=== PATIENT | female | born 1950 | race African-American/Black ===

== ENCOUNTER 2018-12-11 13:31 | Inpatient (IN) | payer OTHER ==
[2018-12-11 14:26] VITALS: BMI 31.6
--- NOTE | 2018-12-11 18:09 | HP ---
"CIWA Score Nausea/Vomitin-Mild Nausea/No Vomiting Muscle Tremors: 3 Anxiety: 4-Mod. Anxious/Guarded Agitation: 4-Moderately Restless Paroxysmal Sweats: 3 (Increased facial moisture) Orientation: 0-Oriented Tacttile Disturbances: 0-None Auditory Disturbances: 0-None Visual Disturbances: 0-None Headache: 2-Mild CIWA-Ar Total Score: 17 - Admission Criteria [facility] Guidelines: Admission for Medically Managed Detox: Requires at least one of the followin. CIWA greater than 12 2. Seizures within the past 24 hours 3. Delirium tremens within the past 24 hours 4. Hallucinations within the past 24 hours 5. Acute intervention needed for co occurring medical disorder 6. Acute intervention needed for co occurring psychiatric disorder 7. Severe withdrawal that cannot be handled at a lower level of care (continued vomiting, continued diarrhea, abnormal vital signs) requiring intravenous medication and/or fluids 8. Patient presents the following: CIWA greater than 12 Admission Criteria Met: Admission criteria met Admission ROS [facility] Chief Complaint: Here with alcohol withdrawal. Allergies/Adverse Reactions: Allergies Allergy/AdvReac Type Severity Reaction Status Date / Time tomato Allergy Severe Rash Verified 12/11/18 17:18 History of Present Illness: Here for alcohol detox. Alcohol use began at age 14. Cocaine use since age 26. Last use 2-3 weeks ago. Denies pill use. LEV 0.013. States last drink this am. Longest length of sobriety 7 months. Patient states had a heart attack in 2007 and was put on 'unknown' pills. States no medication for months. States HIV+ but non-compliant w/ medications or healthcare follow-up. States Hx: asthma. No exacerbation i years. States SOB w/ walking. Hx: 'bad' acid indigestion - especially when lays down at night which causes chest pain. Hx: HTN - not on any medications. States hx DM - controlled by diet. Current BGM =191. Hx arthritis w/ bilateral knee pain. Search Terms: Ruchi Noland, 1950 Search Date: 12/11/2018 06:02:17 PM The Drug Utilization Report below displays all of the controlled substance prescriptions, if any, that your patient has filled in the last twelve months. The information displayed on this report is compiled from pharmacy submissions to the Department, and accurately reflects the information as submitted by the pharmacies. This report was requested by: Ariane Galarza | Reference #: [id number] There are no results for the search terms that you entered. Exam Limitations: No Limitations - Ebola screening Have you traveled outside of the country in the last 21 days: No Have you had contact with anyone from an Ebola affected area: No Have you been sick,other than usual withdrawal symptoms: No Do you have a fever: No - Review of Systems Constitutional: Changes in sleep (Difficulty staying asleep.) EENT: reports: Ear Pain ((R) ear pain x weeks.), Dental Problems (Missing many teeth. Chews and swallows okay.) Respiratory: reports: SOB with Exertion (W/ walking) Cardiac: reports: Other (States hx heart attack. Denies chest pain at this time. ) GI: reports: Indigestion (Hx 'bad' acid indigestion - especially when lays down at night.) : reports: No Symptoms Reported Musculoskeletal: reports: Joint Pain (Bilateral knee pain - states has arthritis ) Integumentary: reports: No Symptoms Reported Neuro: reports: Headache, Tremors Endocrine: reports: No Symptoms Reported Hematology: reports: Blood Clots (years ago had clots in lungs which have resolved.) Psychiatric: reports: Judgement Intact, Orientated x3, Agitated, Anxious, Depressed (Sometimes depressed. Denies thoughts of harming self or others.) Patient History - Patient Medical History Hx Anemia: No Hx Asthma: No Hx Chronic Obstructive Pulmonary Disease (COPD): No Hx Cancer: No Hx Cardiac Disorders: No Hx Hypertension: No Hx Hypercholesterolemia: Yes Hx Pacemaker: No HX Cerebrovascular Accident: No Hx Seizures: No Hx Dementia: No Hx Diabetes: Yes (Pre-diabetic Diet Control ) Hx Gastrointestinal Disorders: Yes (Pt has GERD) Hx Liver Disease: Yes (Hep C ) Hx Genitourinary Disorders: No Hx Sexually Transmitted Disorders: No Hx Renal Disease (ESRD): No Hx Thyroid Disease: No Hx Human Immunodeficiency Virus (HIV): Yes (1993 - ) Hx Hepatitis C: Yes (no treatment ) Hx Depression: Yes Hx Suicide Attempt: No Hx Bipolar Disorder: No Hx Schizophrenia: No - Patient Surgical History Past Surgical History: Yes Hx Neurologic Surgery: No Hx Cataract Extraction: No Hx Cardiac Surgery: No Hx Lung Surgery: No Hx Breast Surgery: No Hx Breast Biopsy: No Hx Abdominal Surgery: No Hx Appendectomy: No Hx Cholecystectomy: No Hx Genitourinary Surgery: No Hx Section: No Hx Orthopedic Surgery: Yes (Sx on right ankle fx) Anesthesia Reaction: No - PPD History Previous Implant?: Yes Documented Results: Negative w/proof Implanted On Prior [facility] Admission?: Yes Date: 08/02/18 Results: 0 mm PPD to be Administered?: No - Smoking Cessation Smoking history: Never smoked Hx Chewing Tobacco Use: No Initiated information on smoking cessation: No - Substance & Tx. History Hx Alcohol Use: Yes Hx Substance Use: Yes Substance Use Type: Alcohol, Cocaine Hx Substance Use Treatment: Yes (detox, rehab) - Substances Abused Alcohol Route: Oral Frequency: Daily Amount used: 1 pint vodka Age of first use: 14 Date of Last Use: 12/11/18 Cocaine Route: Inhalation Frequency: 1-3 times last 30 days Amount used: $5 Age of first use: 26 Date of Last Use: 12/09/18 Family Disease History - Family Disease History Family Disease History: Diabetes: Father ( ), Mother ( ) Admission Physical Exam [facility] - Vital Signs Vital Signs: Vital Signs - 24 hr 12/11/18 14:25 Temperature 97.8 F Pulse Rate 104 H Respiratory 18 Rate Blood Pressure 139/88 - Physical General Appearance: Yes: Moderate Distress, Alcohol on Breath, Tremorous, Irritable, Sweating, Anxious HEENTM: Yes: EOMI (Jerking movement of eye on (L) lateral gaze.), Hearing grossly Normal, Normocephalic, Normal Voice, YVONNE, Pharynx Normal Respiratory: Yes: Chest Non-Tender, Lungs Clear, Normal Breath Sounds, No Respiratory Distress Neck: Yes: No masses,lesions,Nodules, Supple Breast: Yes: Breast Exam Deferred Cardiology: Yes: Regular Rhythm, S1, S2, Tachycardia Abdominal: Yes: Non Tender, Soft, Increased Bowel Sounds Genitourinary: Yes: Within Normal Limits Back: Yes: Normal Inspection Musculoskeletal: Yes: full range of Motion, Joint Stiffness (Mild crepitus both knees. No increased erythema, warmth or tenderness upon palpation.) Extremities: Yes: Normal Capillary Refill, Normal Range of Motion, Tremors Neurological: Yes: rope maker II-XII NML intact (Jerking movement of eye on (L) lateral gaze.), Fully Oriented, Alert, Motor Strength 5/5, Other (agitated, beligerant when asked questions) Integumentary: Yes: Normal Color, Dry, Warm Lymphatic: Yes: Within Normal Limits - Diagnostic (1) History of HIV infection Current Visit: Yes Status: Chronic (2) History of prediabetes Current Visit: Yes Status: Chronic (3) Cocaine use disorder, moderate, in early remission Current Visit: Yes Status: Chronic (4) Alcohol dependence with withdrawal Current Visit: Yes Status: Acute Qualifiers: Complication of substance-induced condition: uncomplicated Qualified Code(s ): F10.230 - Alcohol dependence with withdrawal, uncomplicated (5) Arthritis Current Visit: Yes Status: Chronic (6) GERD (gastroesophageal reflux disease) Current Visit: Yes Status: Chronic Qualifiers: Esophagitis presence: without esophagitis Qualified Code(s): K21.9 - Gastro -esophageal reflux disease without esophagitis (7) Hypertension Current Visit: Yes Status: Chronic Qualifiers: Hypertension type: unspecified Qualified Code(s): I10 - Essential (primary ) hypertension (8) History of abnormal electrocardiogram Current Visit: Yes Status: Chronic (9) Nystagmus Current Visit: Yes Status: Acute (10) Poor dentition Current Visit: Yes Status: Chronic Cleared for Admission [facility] - Detox or Rehab [facility] Level of Care: Medically Managed Detox Regimen/Protocol: Librium [facility] Breath Alcohol Content Breath Alcohol Content: 0.013 Urine Pregancy Test - Result Urine Test Results: Negative- NO Line Present Urine Drug Screen - Results Drug Screen Negative: No Urine Drug Screen Results: JORJE-Cocaine, BZO-Benzodiazepines"
[2018-12-11] MEDS ORDERED: IBUPROFEN 400 MG TABLET (FP) PO PRN (18:45)
[2018-12-11] MEDS ORDERED: chlordiazePOXIDE HCL 25 MG CAPSULE PO ONE (18:45)
[2018-12-11] MEDS ORDERED: MENTHOL/PHENOL 1 EACH UD MM PRN (18:45)
[2018-12-11] MEDS ORDERED: MAGNESIUM HYDROX 2400MG/30ML ORAL SUSPENSION 30 ML CUP PO PRN (18:45)
[2018-12-11] MEDS ORDERED: chlordiazePOXIDE HCL 25 MG CAPSULE PO PRN (18:45)
[2018-12-11] MEDS ORDERED: LOPERAMIDE HCL 2 MG CAPSULE PO PRN (18:45)
[2018-12-11] MEDS ORDERED: MAGNESIUM CITRATE 300 ML BOTTLE PO PRN (18:45)
[2018-12-11] MEDS ORDERED: P-EPHED 60MG/TRIPROLIDI 2.5MG TABLET PO PRN (18:45)
[2018-12-11] MEDS ORDERED: MAG HYDROX/AL HYDROX/SIMETH 30 ML UNIT-DOSE CUP PO PRN (18:45)
[2018-12-11] MEDS ORDERED: guaiFENesin 200 MG/10 ML 10 ML UNIT-DOSE CUPS PO PRN (18:49)
[2018-12-11] MEDS: THIAMINE HCL 100 MG TABLET (FP) PO SCH (21:16)
[2018-12-11] MEDS: PANTOPRAZOLE 20 MG TABLET (FP) PO ONE (21:16)
[2018-12-11] MEDS: chlordiazePOXIDE HCL 25 MG CAPSULE PO SCH (22:22)
[2018-12-11] MEDS: MELATONIN 5 MG TABLETS PO PRN (22:22)
[2018-12-12 01:59] LABS: URINE APPEARANCE CLEAR; URINE BILIRUBIN NEGATIVE (<2.0 mg/dL); URINE COLOR DKYELLOW; URINE GLUCOSE (UA) NEGATIVE (NEGATIVE); URINE KETONE NEGATIVE (NEGATIVE); URINE LEUK ESTERASE NEGATIVE (NEGATIVE); URINE NITRITE NEGATIVE (NEGATIVE); URINE PROTEIN 1+ (NEGATIVE)
[2018-12-12 02:30] LABS: EPI CELLS FEW /HPF (FEW); URINE HYALINE CAST 1 /lpf; URINE MUCUS RARE
[2018-12-12] MEDS: chlordiazePOXIDE HCL 25 MG CAPSULE PO SCH ×4 (06:12→22:25)
[2018-12-12] MEDS: ASPIRIN 81 MG CHEWABLE TABLETS PO SCH (10:57)
[2018-12-12] MEDS: PRENATAL VITAMINS W/ FOLIC ACID TABLET (FP) PO SCH (10:57)
[2018-12-12] MEDS: PANTOPRAZOLE 40 MG TABLET (FP) PO SCH (10:57)
--- NOTE | 2018-12-12 11:59 | EKG ---
Test Reason : Blood Pressure : / mmHG Vent. Rate : 071 BPM Atrial Rate : 071 BPM P-R Int : 228 ms QRS Dur : 094 ms QT Int : 430 ms P-R-T Axes : 073 205 163 degrees QTc Int : 467 ms SINUS RHYTHM WITH 1ST DEGREE A-V BLOCK POSSIBLE LEFT ATRIAL ENLARGEMENT RIGHT SUPERIOR AXIS DEVIATION ABNORMAL ECG WHEN COMPARED WITH ECG OF 31-JUL-2018 22:42, QRS AXIS SHIFTED LEFT NONSPECIFIC T WAVE ABNORMALITY NO LONGER EVIDENT IN ANTERIOR LEADS T WAVE INVERSION NOW EVIDENT IN LATERAL LEADS Confirmed by MILAGROS MONTANEZ, ORESTES ([id number]) on 12/12/2018 11:59:02 AM Referred By: Confirmed By:ORESTES LINARES MD
[2018-12-12 12:22] LABS: HEMATOCRIT 37.7 % (32.4-45.2); HEMOGLOBIN 13.2 GM/dL (10.7-15.3); MCHC 34.9 g/dl (32.0-36.0); MEAN CELL VOLUME 97.5 fl (80-96); MEAN PLT VOLUME 8.3 fl (7.5-11.1); PLATELET COUNT 177 K/MM3 (134-434); RBC 3.87 M/mm3 (3.60-5.2); RDW 15.8 % (11.6-15.6); WHITE BLOOD COUNT 2.8 K/mm3 (4.0-10.0)
[2018-12-12 12:38] LABS: ALBUMIN 3.2 g/dl (3.4-5.0); ALK PHOS 90 U/L (45-117); ANION GAP 9 MMOL/L (8-16); BILIRUBIN,TOTAL 0.4 mg/dL (0.2-1); BLOOD UREA NITROGEN 16 mg/dL (7-18); CHLORIDE 103 mmol/L (98-107); CO2 28 mmol/L (21-32); CREATININE 1.2 mg/dL (0.55-1.3); GLUCOSE,RANDOM 76 mg/dL (74-106); POTASSIUM 4.3 mmol/L (3.5-5.1); SGOT/AST 12 U/L (15-37); SGPT/ALT 11 U/L (13-61); SODIUM 139 mmol/L (136-145); TOT PROT 6.8 g/dl (6.4-8.2)
[2018-12-12] MEDS: ACETAMINOPHEN 325 MG TABLET (FP) PO PRN (15:34)
--- NOTE | 2018-12-12 16:45 | PN ---
[facility] CIWA - CIWA Score Nausea/Vomitin-No Nausea/No Vomiting Muscle Tremors: None Anxiety: 5 Agitation: 3 Paroxysmal Sweats: 2 Orientation: 0-Oriented Tacttile Disturbances: 3-Moderate Itch/Numb/Burn Auditory Disturbances: 0-None Visual Disturbances: 2-Mild Sensitivity Headache: 0-None Present CIWA-Ar Total Score: 15 S Progress Note (SOAP) Subjective: Anxious, Agitated, Sweating, Body Aches. Objective: PATIENT A & O X 3, OBSERVED AMBULATING ON UNIT. IN NO ACUTE DISTRESS. 12/12/18 16:45 Vital Signs Temperature 97.7 F 12/12/18 14:03 Pulse Rate 80 12/12/18 14:03 Respiratory Rate 16 12/12/18 14:03 Blood Pressure 107/52 L 12/12/18 14:03 O2 Sat by Pulse Oximetry (%) Laboratory Tests 12/11/18 12/12/18 12/12/18 22:30 09:29 09:29 WBC 2.8 L RBC 3.87 Hgb 13.2 Hct 37.7 MCV 97.5 H MCH 34.0 H MCHC 34.9 RDW 15.8 H Plt Count 177 MPV 8.3 Sodium 139 Potassium 4.3 Chloride 103 Carbon Dioxide 28 Anion Gap 9 BUN 16 Creatinine 1.2 Creat Clearance w eGFR 44.81 Random Glucose 76 Calcium 9.0 Total Bilirubin 0.4 AST 12 L ALT 11 L Alkaline Phosphatase 90 Total Protein 6.8 Albumin 3.2 L Urine Color Dkyellow Urine Appearance Clear Urine pH 6.0 Ur Specific [place] 1.025 Urine Protein 1+ H Urine Glucose (UA) Negative Urine Ketones Negative Urine Blood Negative Urine Nitrite Negative Urine Bilirubin Negative Urine Urobilinogen 2.0 H Ur Leukocyte Esterase Negative Urine WBC (Auto) 1 Urine RBC (Auto) <1 Ur Epithelial Cells Few Hyaline Casts 1 Urine Mucus Rare LABS NOTED. RPR RESULT PENDING. 12/12/18 16:47 Assessment: 12/12/18 16:46 WITHDRAWAL SYMPTOMS. Plan: CONTINUE DETOX. D/C IBUPROFEN AND MAGNESIUM-CONTAINING MEDS. FOR ABNORMAL ADMISSION RENAL LAB VALUES.
[2018-12-12] MEDS: MELATONIN 5 MG TABLETS PO PRN (22:25)
[2018-12-12] MEDS: THIAMINE HCL 100 MG TABLET (FP) PO SCH (22:25)
[2018-12-13] MEDS: chlordiazePOXIDE HCL 25 MG CAPSULE PO SCH ×3 (05:28→17:29)
[2018-12-13] MEDS: ACETAMINOPHEN 325 MG TABLET (FP) PO PRN (05:30)
[2018-12-13] MEDS ORDERED: IBUPROFEN 400 MG TABLET (FP) PO PRN (10:08)
[2018-12-13] MEDS: ASPIRIN 81 MG CHEWABLE TABLETS PO SCH (10:12)
[2018-12-13] MEDS: PRENATAL VITAMINS W/ FOLIC ACID TABLET (FP) PO SCH (10:12)
[2018-12-13] MEDS: PANTOPRAZOLE 40 MG TABLET (FP) PO SCH (10:13)
--- NOTE | 2018-12-13 13:19 | PN ---
[facility] CIWA - CIWA Score Nausea/Vomitin-No Nausea/No Vomiting Muscle Tremors: 3 Anxiety: 3 Agitation: 3 Paroxysmal Sweats: 2 Orientation: 0-Oriented Tacttile Disturbances: 0-None Auditory Disturbances: 0-None Visual Disturbances: 0-None Headache: 0-None Present CIWA-Ar Total Score: 11 S Progress Note (SOAP) Subjective: sweats shakes interrupted sleep body aches Objective: 12/13/18 13:18 Vital Signs Temperature 97.8 F 12/13/18 10:01 Pulse Rate 74 12/13/18 10:01 Respiratory Rate 18 12/13/18 10:01 Blood Pressure 99/55 L 12/13/18 10:01 O2 Sat by Pulse Oximetry (%) Laboratory Tests 12/11/18 12/12/18 12/12/18 22:30 09:29 09:29 WBC 2.8 L RBC 3.87 Hgb 13.2 Hct 37.7 MCV 97.5 H MCH 34.0 H MCHC 34.9 RDW 15.8 H Plt Count 177 MPV 8.3 Sodium 139 Potassium 4.3 Chloride 103 Carbon Dioxide 28 Anion Gap 9 BUN 16 Creatinine 1.2 Creat Clearance w eGFR 44.81 Random Glucose 76 Calcium 9.0 Total Bilirubin 0.4 AST 12 L ALT 11 L Alkaline Phosphatase 90 Total Protein 6.8 Albumin 3.2 L Urine Color Dkyellow Urine Appearance Clear Urine pH 6.0 Ur Specific [place] 1.025 Urine Protein 1+ H Urine Glucose (UA) Negative Urine Ketones Negative Urine Blood Negative Urine Nitrite Negative Urine Bilirubin Negative Urine Urobilinogen 2.0 H Ur Leukocyte Esterase Negative Urine WBC (Auto) 1 Urine RBC (Auto) <1 Ur Epithelial Cells Few Hyaline Casts 1 Urine Mucus Rare RPR Titer 12/12/18 09:29 WBC RBC Hgb Hct MCV MCH MCHC RDW Plt Count MPV Sodium Potassium Chloride Carbon Dioxide Anion Gap BUN Creatinine Creat Clearance w eGFR Random Glucose Calcium Total Bilirubin AST ALT Alkaline Phosphatase Total Protein Albumin Urine Color Urine Appearance Urine pH Ur Specific [place] Urine Protein Urine Glucose (UA) Urine Ketones Urine Blood Urine Nitrite Urine Bilirubin Urine Urobilinogen Ur Leukocyte Esterase Urine WBC (Auto) Urine RBC (Auto) Ur Epithelial Cells Hyaline Casts Urine Mucus RPR Titer Nonreactive aaox3 ambulating no acute distress Assessment: 12/13/18 13:19 withdrawal sx Plan: continue detox increase fluids
[2018-12-13] MEDS: MELATONIN 5 MG TABLETS PO PRN (22:18)
[2018-12-13] MEDS: chlordiazePOXIDE 5 MG CAPSULE PO SCH (22:18)
[2018-12-13] MEDS: THIAMINE HCL 100 MG TABLET (FP) PO SCH (22:18)
[2018-12-14] MEDS: chlordiazePOXIDE 5 MG CAPSULE PO SCH ×3 (06:15→17:55)
[2018-12-14] MEDS: PANTOPRAZOLE 40 MG TABLET (FP) PO SCH (10:31)
[2018-12-14] MEDS: PRENATAL VITAMINS W/ FOLIC ACID TABLET (FP) PO SCH (10:31)
[2018-12-14] MEDS: ASPIRIN 81 MG CHEWABLE TABLETS PO SCH (10:31)
[2018-12-14] MEDS: ACETAMINOPHEN 325 MG TABLET (FP) PO PRN (10:32)
--- NOTE | 2018-12-14 13:05 | PN ---
[facility] Progress Note (SOAP) Subjective: Irritability, restlessness and interrupted sleep Objective: 12/14/18 13:04 Vital Signs - 8 hr 12/14/18 12/14/18 08:27 09:49 Temperature 97.5 F L 97.7 F Pulse Rate 74 73 Respiratory 18 18 Rate Blood Pressure 97/55 L 108/59 L Laboratory Last Values WBC 2.8 K/mm3 (4.0-10.0) L 12/12/18 09:29 RBC 3.87 M/mm3 (3.60-5.2) 12/12/18 09:29 Hgb 13.2 GM/dL (10.7-15.3) 12/12/18 09:29 Hct 37.7 % (32.4-45.2) 12/12/18 09:29 MCV 97.5 fl (80-96) H 12/12/18 09:29 MCH 34.0 pg (25.7-33.7) H 12/12/18 09:29 MCHC 34.9 g/dl (32.0-36.0) 12/12/18 09:29 RDW 15.8 % (11.6-15.6) H 12/12/18 09:29 Plt Count 177 K/MM3 (134-434) 12/12/18 09:29 MPV 8.3 fl (7.5-11.1) 12/12/18 09:29 Sodium 139 mmol/L (136-145) 12/12/18 09:29 Potassium 4.3 mmol/L (3.5-5.1) 12/12/18 09:29 Chloride 103 mmol/L (98-107) 12/12/18 09:29 Carbon Dioxide 28 mmol/L (21-32) 12/12/18 09:29 Anion Gap 9 MMOL/L (8-16) 12/12/18 09:29 BUN 16 mg/dL (7-18) 12/12/18 09:29 Creatinine 1.2 mg/dL (0.55-1.3) 12/12/18 09:29 Creat Clearance w eGFR 44.81 (>60) 12/12/18 09:29 POC Glucometer 96 UNITS (80-120) 12/14/18 06:15 Random Glucose 76 mg/dL (74-106) 12/12/18 09:29 Calcium 9.0 mg/dL (8.5-10.1) 12/12/18 09:29 Total Bilirubin 0.4 mg/dL (0.2-1) 12/12/18 09:29 AST 12 U/L (15-37) L 12/12/18 09:29 ALT 11 U/L (13-61) L 12/12/18 09:29 Alkaline Phosphatase 90 U/L (45-117) 12/12/18 09:29 Total Protein 6.8 g/dl (6.4-8.2) 12/12/18 09:29 Albumin 3.2 g/dl (3.4-5.0) L 12/12/18 09:29 Urine Color Dkyellow 12/11/18 22:30 Urine Appearance Clear 12/11/18 22:30 Urine pH 6.0 (5.0-8.0) 12/11/18 22:30 Ur Specific [place] 1.025 (1.010-1.035) 12/11/18 22:30 Urine Protein 1+ (NEGATIVE) H 12/11/18 22:30 Urine Glucose (UA) Negative (NEGATIVE) 12/11/18 22:30 Urine Ketones Negative (NEGATIVE) 12/11/18 22:30 Urine Blood Negative (NEGATIVE) 12/11/18 22:30 Urine Nitrite Negative (NEGATIVE) 12/11/18 22:30 Urine Bilirubin Negative (<2.0 mg/dL) 12/11/18 22:30 Urine Urobilinogen 2.0 mg/dL (0.2-1.0) H 12/11/18 22:30 Ur Leukocyte Esterase Negative (NEGATIVE) 12/11/18 22:30 Urine WBC (Auto) 1 /hpf (3-5) 12/11/18 22:30 Urine RBC (Auto) <1 /hpf (0-3) 12/11/18 22:30 Ur Epithelial Cells Few /HPF (FEW) 12/11/18 22:30 Hyaline Casts 1 /lpf 12/11/18 22:30 Urine Mucus Rare 12/11/18 22:30 RPR Titer Nonreactive (NONREACTIVE) 12/12/18 09:29 Labs noted, no panic values Assessment: 12/14/18 13:05 Withdrawal sx Plan: Continue detox
[2018-12-14] MEDS: THIAMINE HCL 100 MG TABLET (FP) PO SCH (22:13)
[2018-12-14] MEDS: chlordiazePOXIDE HCL 10 MG CAPSULE PO SCH (22:13)
[2018-12-14] MEDS: MELATONIN 5 MG TABLETS PO PRN (22:13)
[2018-12-15] MEDS: chlordiazePOXIDE HCL 10 MG CAPSULE PO SCH ×2 (06:44→10:34)
[2018-12-15] MEDS: ACETAMINOPHEN 325 MG TABLET (FP) PO PRN (06:45)
[2018-12-15] MEDS: ASPIRIN 81 MG CHEWABLE TABLETS PO SCH (10:34)
[2018-12-15] MEDS: PRENATAL VITAMINS W/ FOLIC ACID TABLET (FP) PO SCH (10:34)
[2018-12-15] MEDS: PANTOPRAZOLE 40 MG TABLET (FP) PO SCH (10:34)
--- NOTE | 2018-12-15 11:03 | DS ---
[facility] Detox Discharge Summary Admission Date: 12/11/18 Discharge Date: 12/15/18 - History Present History: Alcohol Dependence Additional Comments: 68 years old female admitted on 12/11/18 for alcohol withdrawal stabilization completed alcohol detox regimen tolerated well aftercare [facility] - Physical Exam Results Vital Signs: Vital Signs Temperature 97.3 F L 12/15/18 08:02 Pulse Rate 72 12/15/18 08:02 Respiratory Rate 18 12/15/18 08:02 Blood Pressure 93/65 12/15/18 08:02 O2 Sat by Pulse Oximetry (%) Pertinent Admission Physical Exam Findings: alcohol withdrawal sx Laboratory Last Values WBC 2.8 K/mm3 (4.0-10.0) L 12/12/18 09:29 RBC 3.87 M/mm3 (3.60-5.2) 12/12/18 09:29 Hgb 13.2 GM/dL (10.7-15.3) 12/12/18 09:29 Hct 37.7 % (32.4-45.2) 12/12/18 09:29 MCV 97.5 fl (80-96) H 12/12/18 09:29 MCH 34.0 pg (25.7-33.7) H 12/12/18 09:29 MCHC 34.9 g/dl (32.0-36.0) 12/12/18 09:29 RDW 15.8 % (11.6-15.6) H 12/12/18 09:29 Plt Count 177 K/MM3 (134-434) 12/12/18 09:29 MPV 8.3 fl (7.5-11.1) 12/12/18 09:29 Sodium 139 mmol/L (136-145) 12/12/18 09:29 Potassium 4.3 mmol/L (3.5-5.1) 12/12/18 09:29 Chloride 103 mmol/L (98-107) 12/12/18 09:29 Carbon Dioxide 28 mmol/L (21-32) 12/12/18 09:29 Anion Gap 9 MMOL/L (8-16) 12/12/18 09:29 BUN 16 mg/dL (7-18) 12/12/18 09:29 Creatinine 1.2 mg/dL (0.55-1.3) 12/12/18 09:29 Creat Clearance w eGFR 44.81 (>60) 12/12/18 09:29 POC Glucometer 110 UNITS (80-120) 12/15/18 06:23 Random Glucose 76 mg/dL (74-106) 12/12/18 09:29 Calcium 9.0 mg/dL (8.5-10.1) 12/12/18 09:29 Total Bilirubin 0.4 mg/dL (0.2-1) 12/12/18 09:29 AST 12 U/L (15-37) L 12/12/18 09:29 ALT 11 U/L (13-61) L 12/12/18 09:29 Alkaline Phosphatase 90 U/L (45-117) 12/12/18 09:29 Total Protein 6.8 g/dl (6.4-8.2) 12/12/18 09:29 Albumin 3.2 g/dl (3.4-5.0) L 12/12/18 09:29 Urine Color Dkyellow 12/11/18 22:30 Urine Appearance Clear 12/11/18 22:30 Urine pH 6.0 (5.0-8.0) 12/11/18 22:30 Ur Specific [place] 1.025 (1.010-1.035) 12/11/18 22:30 Urine Protein 1+ (NEGATIVE) H 12/11/18 22:30 Urine Glucose (UA) Negative (NEGATIVE) 12/11/18 22:30 Urine Ketones Negative (NEGATIVE) 12/11/18 22:30 Urine Blood Negative (NEGATIVE) 12/11/18 22:30 Urine Nitrite Negative (NEGATIVE) 12/11/18 22:30 Urine Bilirubin Negative (<2.0 mg/dL) 12/11/18 22:30 Urine Urobilinogen 2.0 mg/dL (0.2-1.0) H 12/11/18 22:30 Ur Leukocyte Esterase Negative (NEGATIVE) 12/11/18 22:30 Urine WBC (Auto) 1 /hpf (3-5) 12/11/18 22:30 Urine RBC (Auto) <1 /hpf (0-3) 12/11/18 22:30 Ur Epithelial Cells Few /HPF (FEW) 12/11/18 22:30 Hyaline Casts 1 /lpf 12/11/18 22:30 Urine Mucus Rare 12/11/18 22:30 RPR Titer Nonreactive (NONREACTIVE) 12/12/18 09:29 lab noted patient agrees to follow up low wbc with infectious disease specialist - Treatment Hospital Course: Detox Protocol Followed, Detoxed Safely, Responded well, Discharged Condition Good, Rehab Referral Accepted Patient has Accepted a Rehab Referral to: [facility] - Medication Discharge Medications: Ambulatory Orders Unobtainable 12/11/18 - Diagnosis (1) HIV (human immunodeficiency virus infection) Current Visit: Yes Status: Chronic Qualifiers: HIV symptom status: unspecified Qualified Code(s): B20 - Human immunodeficiency virus [HIV] disease (2) Hepatitis C Current Visit: Yes Status: Chronic Qualifiers: Viral hepatitis chronicity: chronic Hepatic coma status: without hepatic coma Qualified Code(s): B18.2 - Chronic viral hepatitis C (3) Hypertension Current Visit: Yes Status: Chronic Qualifiers: Hypertension type: essential hypertension Qualified Code(s): I10 - Essential (primary) hypertension (4) Alcohol dependence with withdrawal Current Visit: Yes Status: Acute Qualifiers: Complication of substance-induced condition: uncomplicated Qualified Code(s ): F10.230 - Alcohol dependence with withdrawal, uncomplicated (5) GERD (gastroesophageal reflux disease) Current Visit: Yes Status: Chronic Qualifiers: Esophagitis presence: without esophagitis Qualified Code(s): K21.9 - Gastro -esophageal reflux disease without esophagitis - AMA Did Patient Leave Against Medical Advice: No
[2018-12-15 14:25] VITALS: BP 92/55; PULSE 114; TEMP 97.1
== END 2018-12-15 14:37 | disposition home or self-care (01) | DRG 774 ==
LOC: YASAS 13:31 → Y6N 18:12
PROVIDERS: ADMIT Neuromusculoskeletal Medicine & OMM; ATTEND Neuromusculoskeletal Medicine & OMM
PROC: HZ2ZZZZ Detoxification Services for Substance Abuse Treatment (ICD-10-PCS; principal; 2018-12-11)
DX: F10.230 Alcohol dependence with withdrawal, uncomplicated (principal); F14.21 Cocaine dependence, in remission; F19.282 Other psychoactive substance dependence with psychoactive substance-induced sleep disorder; F14.90 Cocaine use, unspecified, uncomplicated; I10 Essential (primary) hypertension; Z21 Asymptomatic human immunodeficiency virus [HIV] infection status; B18.2 Chronic viral hepatitis C; K08.9 Disorder of teeth and supporting structures, unspecified; K21.9 Gastro-esophageal reflux disease without esophagitis; R73.03 Prediabetes; R00.0 Tachycardia, unspecified; M19.90 Unspecified osteoarthritis, unspecified site; H55.00 Unspecified nystagmus; Z91.14 Patient's other noncompliance with medication regimen; Z91.19 Patient's noncompliance with other medical treatment and regimen; Z86.73 Personal history of transient ischemic attack (TIA), and cerebral infarction without residual deficits
CPT/HCPCS: 36415; 80053; 81003; 81015; 82962; 85027; 86593; 93005; 93010

== ENCOUNTER 2019-01-14 18:26 | Inpatient (IN) | payer OTHER ==
[2019-01-14 19:37] VITALS: BMI 31.6
--- NOTE | 2019-01-14 20:40 | HP ---
"CIWA Score Nausea/Vomitin-Mild Nausea/No Vomiting Muscle Tremors: 4-Moderate,w/Arms Extend Anxiety: 4-Mod. Anxious/Guarded Agitation: 4-Moderately Restless Paroxysmal Sweats: 3 Orientation: 0-Oriented Tacttile Disturbances: 0-None Auditory Disturbances: 2-Mild Harshness/Frighten Visual Disturbances: 0-None Headache: 2-Mild CIWA-Ar Total Score: 20 - Admission Criteria OASAS Guidelines: Admission for Medically Managed Detox: Requires at least one of the followin. CIWA greater than 12 2. Seizures within the past 24 hours 3. Delirium tremens within the past 24 hours 4. Hallucinations within the past 24 hours 5. Acute intervention needed for co occurring medical disorder 6. Acute intervention needed for co occurring psychiatric disorder 7. Severe withdrawal that cannot be handled at a lower level of care (continued vomiting, continued diarrhea, abnormal vital signs) requiring intravenous medication and/or fluids 8. Patient presents the following: CIWA greater than 12 Admission Criteria Met: Admission criteria met Admission ROS [facility] Chief Complaint: C/O WORSENING WITHDRAWAL SX'S Allergies/Adverse Reactions: Allergies Allergy/AdvReac Type Severity Reaction Status Date / Time tomato Allergy Severe Rash Verified 12/11/18 17:18 History of Present Illness: 68 Y.O. FEMALE WITH ALCOHOLISM HERE FOR DETOS. CLIENT IS SELF REFERRED. KNOWN TO PROGRAM . LAST ADMISSION 1 MONTH AGO. PRESENTS TODAY WITH C/O WORSENING WITHDRAWAL SX'S. CIWA 20. REPORTS LONGEST CLEAN TIME 4 YEARS . DENIES ANY RECENT CLEAN TIME. PMHX- HEPC, ASTHMA, . DENIES MENTAL HEALTH DX'S TO INCLUDE PAST/ PRESENT SI/HI/AVH. LIVES IN THE PRISON, UNEMPLOYED, DENIES LEGALS. UTOX + BZO Search Terms: GABRIEL RYANSENG, 1950 Search Date: 01/14/2019 08:34:01 PM The Drug Utilization Report below displays all of the controlled substance prescriptions, if any, that your patient has filled in the last twelve months. The information displayed on this report is compiled from pharmacy submissions to the Department, and accurately reflects the information as submitted by the pharmacies. This report was requested by: Therese Solis | Reference #: [id number] There are no results for the search terms that you entered. Exam Limitations: No Limitations - Ebola screening Have you traveled outside of the country in the last 21 days: No (N) Have you had contact with anyone from an Ebola affected area: No Have you been sick,other than usual withdrawal symptoms: No Do you have a fever: No - Review of Systems Constitutional: Chills, Loss of Appetite, Night Sweats, Changes in sleep EENT: reports: Dental Problems (MISSING TEETH) Respiratory: reports: SOB with Exertion, Other (HX/O ASTHMA) Cardiac: reports: No Symptoms Reported GI: reports: Poor Appetite, Other (HEART BURN) : reports: Frequency Musculoskeletal: reports: Back Pain (CHROONIC) Integumentary: reports: No Symptoms Reported Neuro: reports: Headache (MIGRAINES) Endocrine: reports: Other (BORDERLINE DM) Hematology: reports: No Symptoms Reported Psychiatric: reports: Orientated x3, Anxious, Depressed Other Systems: Reviewed and Negative Patient History - Patient Medical History Hx Anemia: Yes Hx Asthma: No Hx Chronic Obstructive Pulmonary Disease (COPD): No Hx Cancer: No Hx Cardiac Disorders: No Hx Congestive Heart Failure: No Hx Hypertension: No Hx Hypercholesterolemia: Yes Hx Pacemaker: No HX Cerebrovascular Accident: No Hx Seizures: No Hx Dementia: No Hx Diabetes: Yes (Pre-diabetic Diet Control ) Hx Gastrointestinal Disorders: Yes (Pt has GERD) Hx Liver Disease: Yes (Hep C ) Hx Genitourinary Disorders: No Hx Sexually Transmitted Disorders: No Hx Renal Disease (ESRD): No Hx Thyroid Disease: No Hx Human Immunodeficiency Virus (HIV): Yes Hx Hepatitis C: Yes (TX'ED) Hx Depression: Yes Hx Suicide Attempt: No Hx Bipolar Disorder: No Hx Schizophrenia: No - Patient Surgical History Past Surgical History: Yes Hx Neurologic Surgery: No Hx Cataract Extraction: No Hx Cardiac Surgery: No Hx Lung Surgery: No Hx Breast Surgery: No Hx Breast Biopsy: No Hx Abdominal Surgery: No Hx Appendectomy: No Hx Cholecystectomy: No Hx Genitourinary Surgery: No Hx Section: No Hx Orthopedic Surgery: Yes (Sx on right ankle fx) Anesthesia Reaction: No - PPD History Previous Implant?: Yes Documented Results: Negative w/proof Implanted On Prior [facility] Admission?: Yes Date: 12/13/18 Results: 0 mm PPD to be Administered?: No - Reproductive History Patient is a Female of Child Bearing Age (11 -55 yrs old): No Patient : No (NEG [facility]) - Smoking Cessation Smoking history: Never smoked Have you smoked in the past 12 months: No Hx Chewing Tobacco Use: No Initiated information on smoking cessation: No - Substance & Tx. History Hx Alcohol Use: Yes Hx Substance Use: Yes Substance Use Type: Alcohol Hx Substance Use Treatment: Yes ([facility]) - Substances Abused VODKA Route: Oral Frequency: Daily Amount used: FIFTH Age of first use: 17 Date of Last Use: 01/14/19 Family Disease History - Family Disease History Family Disease History: Diabetes: Father ( ), Mother ( ) Admission Physical Exam [facility] - Vital Signs Vital Signs: Vital Signs - 24 hr 01/14/19 19:34 Pulse Rate 121 H Respiratory 20 Rate Blood Pressure 128/80 - Physical General Appearance: Yes: Appropriately Dressed, Tremorous, Anxious, Other ( MALODUORUS) HEENTM: Yes: EOMI, Normocephalic, Normal Voice, YVONNE, Pharynx Normal, Other ( POOR DENTITION, MISSING TEETH) Respiratory: Yes: Chest Non-Tender, Lungs Clear, Normal Breath Sounds, No Respiratory Distress, No Accessory Muscle Use Neck: Yes: No masses,lesions,Nodules, Supple, Trachea in good position Breast: Yes: Breast Exam Deferred Cardiology: Yes: Regular Rhythm, S1, S2, Tachycardia Abdominal: Yes: Normal Bowel Sounds, Non Tender, Soft, Protuberent Genitourinary: Yes: Other (NO C/O) Back: Yes: Normal Inspection Musculoskeletal: Yes: full range of Motion, Gait Steady, Other (HAND TREMORS) Extremities: Yes: Normal Capillary Refill, Normal Range of Motion, Non-Tender, Tremors Neurological: Yes: Fully Oriented, Alert, Motor Strength 5/5 Integumentary: Yes: Dry, Warm Lymphatic: Yes: Within Normal Limits - Diagnostic (1) HLD (hyperlipidemia) Current Visit: Yes Status: Chronic Qualifiers: Hyperlipidemia type: unspecified Qualified Code(s): E78.5 - Hyperlipidemia , unspecified (2) Asthma Current Visit: Yes Status: Chronic Qualifiers: Asthma severity: mild Asthma persistence: intermittent Asthma complication type: uncomplicated Qualified Code(s): J45.20 - Mild intermittent asthma, uncomplicated (3) Substance induced mood disorder Current Visit: Yes Status: Acute (4) Alcohol dependence with withdrawal Current Visit: Yes Status: Acute Qualifiers: Complication of substance-induced condition: uncomplicated Qualified Code(s ): F10.230 - Alcohol dependence with withdrawal, uncomplicated (5) GERD (gastroesophageal reflux disease) Current Visit: Yes Status: Chronic Qualifiers: Esophagitis presence: without esophagitis Qualified Code(s): K21.9 - Gastro -esophageal reflux disease without esophagitis (6) Hepatitis C Current Visit: Yes Status: Chronic Qualifiers: Viral hepatitis chronicity: chronic Hepatic coma status: without hepatic coma Qualified Code(s): B18.2 - Chronic viral hepatitis C (7) History of prediabetes Current Visit: Yes Status: Chronic (8) Poor dentition Current Visit: Yes Status: Chronic Cleared for Admission S - Detox or Rehab [facility] Level of Care: Medically Managed Detox Regimen/Protocol: Librium Claeared for Rehab Admission: No S Breath Alcohol Content Breath Alcohol Content: 0.002 Urine Pregancy Test - Result Urine Test Results: Negative- NO Line Present Urine Drug Screen - Results Drug Screen Negative: No Urine Drug Screen Results: BZO-Benzodiazepines Inpatient Rehab Admission - Rehab Decision to Admit Inpatient rehab admission?: No"
[2019-01-14] MEDS ORDERED: MAGNESIUM CITRATE 300 ML BOTTLE PO PRN (20:46)
[2019-01-14] MEDS ORDERED: MENTHOL/PHENOL 1 EACH UD MM PRN (20:46)
[2019-01-14] MEDS ORDERED: guaiFENesin/D-METHORPHAN HB 10 ML UNIT-DOSE CUPS PO PRN (20:46)
[2019-01-14] MEDS ORDERED: MAGNESIUM HYDROX 2400MG/30ML ORAL SUSPENSION 30 ML CUP PO PRN (20:46)
[2019-01-14] MEDS ORDERED: LOPERAMIDE HCL 2 MG CAPSULE PO PRN (20:46)
[2019-01-14] MEDS ORDERED: ACETAMINOPHEN 325 MG TABLET (FP) PO PRN (20:46)
[2019-01-14] MEDS ORDERED: P-EPHED 60MG/TRIPROLIDI 2.5MG TABLET PO PRN (20:46)
[2019-01-15] MEDS ORDERED: chlordiazePOXIDE HCL 25 MG CAPSULE PO PRN (00:12)
[2019-01-15] MEDS: THIAMINE HCL 100 MG TABLET (FP) PO SCH ×2 (00:18→22:27)
[2019-01-15] MEDS: MELATONIN 5 MG TABLETS PO PRN ×2 (00:42→22:27)
[2019-01-15] MEDS: chlordiazePOXIDE HCL 25 MG CAPSULE PO SCH ×4 (05:56→22:27)
[2019-01-15] MEDS: MAG HYDROX/AL HYDROX/SIMETH 30 ML UNIT-DOSE CUP PO PRN (06:36)
--- NOTE | 2019-01-15 07:38 | CONSULT ---
[facility] Psychiatric Consult - Data Date of interview: 01/15/19 Admission source: [facility] Identifying data: This is a 68 years old obese female,, mother of seven, unemployed, living alone, on PA support, with no psychiatric hospitalization history, with multiple medical issues, with long history of Alcohol dependence, is here reporting withdrawal symptoms and seeking detox. As per chart patioent has PCP and Cocaine dependence history. As per [facility] Substance Abuse History: - Smoking Cessation. Smoking history: Never smoked. Have you smoked in the past 12 months: No. Hx Chewing Tobacco Use: No. Initiated information on smoking cessation: No. - Substance & Tx. History. Hx Alcohol Use: Yes. Hx Substance Use: Yes. Substance Use Type: Alcohol. Hx Substance Use Treatment: Yes ([facility]). - Substances Abused. VODKA. Route: Oral. Frequency: Daily. Amount used: FIFTH. Age of first use: 17. Date of Last Use: 01/14/19 Medical History: Asthma, GERD, Hyperlipidemia, Arthritis history, HIV+, HTN, HepC+, Obesity. Patient is using walker for ambulation. Psychiatric History: Patient reports history of depression and anxiety, reports no psychiatric hospitalization history, reports no psychiatric medications taking prior to admission, denies suicidal, hopmicidal history as well. Physical/Sexual Abuse/Trauma History: Unclear Additional Comment: Observation. Detox Unit Care Protocol. Mental Status Exam - Mental Status Exam Alert and Oriented to: Person Cognitive Function: Fair Patient Appearance: Unkempt Mood: Sad Affect: Flat Patient Behavior: Sedated Speech Pattern: Delayed Voice Loudness: Mildly Soft/Quiet Thought Process: Circumstantial Thought Disorder: Being Controlled Hallucinations: Denies Suicidal Ideation: Denies Homicidal Ideation: Denies Insight/Judgement: Fair Sleep: Difficulty falling asleep Appetite: Weight gain Muscle strength/Tone: Mild Hypotonicity Gait/Station: Shuffling Additional Comments: Observation. Detox Unit Care Protocol. Psychiatric Findings - Problem List ([place] 1, 2,3) (1) Alcohol dependence with withdrawal Current Visit: Yes Status: Acute Qualifiers: Complication of substance-induced condition: uncomplicated Qualified Code(s ): F10.230 - Alcohol dependence with withdrawal, uncomplicated (2) Substance induced mood disorder Current Visit: Yes Status: Acute (3) Asthma Current Visit: Yes Status: Chronic Qualifiers: Asthma severity: mild Asthma persistence: intermittent Asthma complication type: uncomplicated Qualified Code(s): J45.20 - Mild intermittent asthma, uncomplicated (4) GERD (gastroesophageal reflux disease) Current Visit: Yes Status: Chronic Qualifiers: Esophagitis presence: without esophagitis Qualified Code(s): K21.9 - Gastro -esophageal reflux disease without esophagitis (5) HLD (hyperlipidemia) Current Visit: Yes Status: Chronic Qualifiers: Hyperlipidemia type: unspecified Qualified Code(s): E78.5 - Hyperlipidemia , unspecified (6) Hepatitis C Current Visit: Yes Status: Chronic Qualifiers: Viral hepatitis chronicity: chronic Hepatic coma status: without hepatic coma Qualified Code(s): B18.2 - Chronic viral hepatitis C (7) History of prediabetes Current Visit: Yes Status: Chronic (8) PCP dependence Current Visit: No Status: Acute (9) Arthritis Current Visit: No Status: Chronic (10) Cocaine use disorder, moderate, in early remission Current Visit: No Status: Chronic (11) HIV (human immunodeficiency virus infection) Current Visit: No Status: Chronic Qualifiers: HIV symptom status: unspecified Qualified Code(s): B20 - Human immunodeficiency virus [HIV] disease Comment: reprots no medications taken at this time (12) History of HIV infection Current Visit: No Status: Chronic (13) Hypertension Current Visit: No Status: Chronic Qualifiers: Hypertension type: essential hypertension Qualified Code(s): I10 - Essential (primary) hypertension (14) Obese Current Visit: No Status: Chronic Qualifiers: Obesity classification: adult class 1 (BMI 30 - 34.9) Body mass index: BMI 31.0-31.9 (15) Walker as ambulation aid Current Visit: No Status: Chronic - Initial Treatment Plan Initial Treatment Plan: Observation. Detox Unit Care Protocol.
[2019-01-15] MEDS: PRENATAL VITAMINS W/ FOLIC ACID TABLET (FP) PO SCH (10:16)
--- NOTE | 2019-01-15 12:15 | PN ---
S CIWA - CIWA Score Nausea/Vomitin-No Nausea/No Vomiting Muscle Tremors: 3 Anxiety: 3 Agitation: 3 Paroxysmal Sweats: 3 Orientation: 0-Oriented Tacttile Disturbances: 0-None Auditory Disturbances: 0-None Visual Disturbances: 0-None Headache: 0-None Present CIWA-Ar Total Score: 12 [facility] Progress Note (SOAP) Subjective: sweats shakes interrupted sleep body aches Objective: 01/15/19 12:14 Vital Signs Temperature 98.4 F 01/15/19 09:52 Pulse Rate 85 01/15/19 09:52 Respiratory Rate 18 01/15/19 09:52 Blood Pressure 104/64 01/15/19 09:52 O2 Sat by Pulse Oximetry (%) labs ordered results pending aaox3 ambulating no acute distress Assessment: 01/15/19 12:15 withdrawal sx Plan: continue detox increase fluids labs pending
[2019-01-15] MEDS: IBUPROFEN 400 MG TABLET (FP) PO PRN (14:41)
[2019-01-15] MEDS ORDERED: diphenhydrAMINE HCL 25 MG CAPSULE (FP) PO ONE (15:41)
--- NOTE | 2019-01-15 15:43 | PN ---
[facility] Progress Note Note: pt had tomato sauce and forgot she is allergic to tomato. Benadryl 50mg x one ordered.
[2019-01-16] MEDS: chlordiazePOXIDE HCL 25 MG CAPSULE PO SCH ×4 (06:03→22:29)
[2019-01-16] MEDS: IBUPROFEN 400 MG TABLET (FP) PO PRN (09:24)
[2019-01-16] MEDS: MAG HYDROX/AL HYDROX/SIMETH 30 ML UNIT-DOSE CUP PO PRN ×2 (09:25→21:36)
[2019-01-16] MEDS: PRENATAL VITAMINS W/ FOLIC ACID TABLET (FP) PO SCH (10:38)
[2019-01-16 10:44] LABS: BASO % 1.2 % (0-2.0); EOS % 6.3 % (0-4.5); HEMATOCRIT 37.3 % (32.4-45.2); LYMPH % 40.3 % (8-40); MCH 34.7 pg (25.7-33.7); MCHC 34.7 g/dl (32.0-36.0); MEAN PLT VOLUME 8.7 fl (7.5-11.1); MONO % 11.1 % (3.8-10.2); NEUT % 41.1 % (42.8-82.8); PLATELET COUNT 166 K/MM3 (134-434); RBC 3.73 M/mm3 (3.60-5.2); RDW 13.8 % (11.6-15.6); WHITE BLOOD COUNT 2.2 K/mm3 (4.0-10.0)
--- NOTE | 2019-01-16 11:22 | PN ---
S CIWA - CIWA Score Nausea/Vomitin-No Nausea/No Vomiting Muscle Tremors: 3 Anxiety: 3 Agitation: 3 Paroxysmal Sweats: 2 Orientation: 0-Oriented Tacttile Disturbances: 0-None Auditory Disturbances: 0-None Visual Disturbances: 0-None Headache: 0-None Present CIWA-Ar Total Score: 11 S Progress Note (SOAP) Subjective: sweats mild shakes interrupted sleep body aches Objective: 01/16/19 11:21 Vital Signs Temperature 97.3 F L 01/16/19 09:34 Pulse Rate 81 01/16/19 09:34 Respiratory Rate 18 01/16/19 09:34 Blood Pressure 104/54 L 01/16/19 09:34 O2 Sat by Pulse Oximetry (%) Laboratory Tests 01/16/19 06:00 WBC 2.2 L RBC 3.73 Hgb 13.0 Hct 37.3 MCV 100.0 H MCH 34.7 H MCHC 34.7 RDW 13.8 D Plt Count 166 MPV 8.7 Absolute Neuts (auto) 0.9 L Neutrophils % 41.1 L Lymphocytes % 40.3 H Monocytes % 11.1 H Eosinophils % 6.3 H Basophils % 1.2 Nucleated RBC % 0 rest of labs pending aaox3 ambulating no acute distress Assessment: 01/16/19 11:21 withdrawal sx Plan: continue detox increase fluids
[2019-01-16 11:38] LABS: ALBUMIN 3.2 g/dl (3.4-5.0); ALK PHOS 72 U/L (45-117); ANION GAP 5 MMOL/L (8-16); BILIRUBIN,TOTAL 0.3 mg/dL (0.2-1); BLOOD UREA NITROGEN 20 mg/dL (7-18); CALCIUM 9.1 mg/dL (8.5-10.1); CHLORIDE 102 mmol/L (98-107); CO2 27 mmol/L (21-32); GLUCOSE,RANDOM 84 mg/dL (74-106); POTASSIUM 4.4 mmol/L (3.5-5.1); SGOT/AST 12 U/L (15-37); SGPT/ALT 11 U/L (13-61); SODIUM 135 mmol/L (136-145); TOT PROT 6.5 g/dl (6.4-8.2)
[2019-01-16] MEDS: hydrOXYzine PAMOATE 50 MG CAPSULE (FP) PO PRN ×2 (13:33→22:29)
[2019-01-16] MEDS: MELATONIN 5 MG TABLETS PO PRN (22:29)
[2019-01-16] MEDS: THIAMINE HCL 100 MG TABLET (FP) PO SCH (22:29)
[2019-01-17] MEDS: chlordiazePOXIDE 5 MG CAPSULE PO SCH ×2 (06:01→10:58)
[2019-01-17] MEDS: MAG HYDROX/AL HYDROX/SIMETH 30 ML UNIT-DOSE CUP PO PRN (06:04)
[2019-01-17] MEDS: IBUPROFEN 400 MG TABLET (FP) PO PRN (06:04)
[2019-01-17] MEDS: PRENATAL VITAMINS W/ FOLIC ACID TABLET (FP) PO SCH (10:58)
--- NOTE | 2019-01-17 12:08 | PN ---
[facility] Progress Note (SOAP) Subjective: feeling better sweats ear discomfort to right ear Objective: 01/17/19 12:07 Vital Signs Temperature 98.4 F 01/17/19 09:04 Pulse Rate 89 01/17/19 09:04 Respiratory Rate 18 01/17/19 09:04 Blood Pressure 110/69 01/17/19 09:04 O2 Sat by Pulse Oximetry (%) aaox3 ambulating no acute distress Assessment: 01/17/19 12:07 mild withdrawal sx right ear assessed; mild redness noted; no odor, no discharge noted Plan: continue detox increase fluids otic antibiotic ordered d/c in am
[2019-01-17] MEDS ORDERED: OFLOXACIN 0.3% OTIC SOLUTION 5 ML BOTTLE AD SCH (13:00)
--- NOTE | 2019-01-17 13:06 | PN ---
S Progress Note Note: pt is willing to go to rehab for continued treatment and has no s/s of withdrawals. pt will be d/c today to [facility] rehab.
--- NOTE | 2019-01-17 13:12 | DS ---
[facility] Detox Discharge Summary Admission Date: 01/14/19 Discharge Date: 01/17/19 - History Present History: Alcohol Dependence, Cocaine Dependence, Pcp Dependence - Physical Exam Results Vital Signs: Vital Signs Temperature 98.4 F 01/17/19 09:04 Pulse Rate 89 01/17/19 09:04 Respiratory Rate 18 01/17/19 09:04 Blood Pressure 110/69 01/17/19 09:04 O2 Sat by Pulse Oximetry (%) - Treatment Hospital Course: Detox Protocol Followed, Detoxed Safely, Responded well, Discharged Condition Good, Rehab Referral Accepted - Medication Discharge Medications: Ambulatory Orders Atazanavir [Reyataz -] 300 mg PO DAILY@0800 01/14/19 Bactrim DS - 1 tab PO DAILY 01/14/19 Emtricitabine/Tenofovir [Truvada] 1 tab PO DAILY 01/14/19 Esomeprazole Magnesium [Nexium 24Hr] 1 tab PO DAILY 01/14/19 - Diagnosis (1) Alcohol dependence with withdrawal Current Visit: Yes Status: Chronic Qualifiers: Complication of substance-induced condition: uncomplicated Qualified Code(s ): F10.230 - Alcohol dependence with withdrawal, uncomplicated (2) Substance induced mood disorder Current Visit: Yes Status: Acute (3) Asthma Current Visit: Yes Status: Chronic Qualifiers: Asthma severity: mild Asthma persistence: intermittent Asthma complication type: uncomplicated Qualified Code(s): J45.20 - Mild intermittent asthma, uncomplicated (4) GERD (gastroesophageal reflux disease) Current Visit: Yes Status: Chronic Qualifiers: Esophagitis presence: without esophagitis Qualified Code(s): K21.9 - Gastro -esophageal reflux disease without esophagitis (5) HLD (hyperlipidemia) Current Visit: Yes Status: Chronic Qualifiers: Hyperlipidemia type: unspecified Qualified Code(s): E78.5 - Hyperlipidemia , unspecified (6) Hepatitis C Current Visit: Yes Status: Chronic Qualifiers: Viral hepatitis chronicity: chronic Hepatic coma status: without hepatic coma Qualified Code(s): B18.2 - Chronic viral hepatitis C (7) History of prediabetes Current Visit: Yes Status: Chronic (8) Poor dentition Current Visit: Yes Status: Chronic (9) Insomnia Current Visit: No Status: Acute Qualifiers: Insomnia type: alcohol-induced Qualified Code(s): F10.982 - Alcohol use, unspecified with alcohol-induced sleep disorder (10) Nystagmus Current Visit: No Status: Acute (11) PCP dependence Current Visit: No Status: Acute (12) Arthritis Current Visit: No Status: Chronic (13) Cocaine use disorder, moderate, in early remission Current Visit: No Status: Chronic (14) HIV (human immunodeficiency virus infection) Current Visit: No Status: Chronic Qualifiers: HIV symptom status: unspecified Qualified Code(s): B20 - Human immunodeficiency virus [HIV] disease (15) History of HIV infection Current Visit: No Status: Chronic (16) History of abnormal electrocardiogram Current Visit: No Status: Chronic (17) Hypertension Current Visit: No Status: Chronic Qualifiers: Hypertension type: essential hypertension Qualified Code(s): I10 - Essential (primary) hypertension (18) Obese Current Visit: No Status: Chronic Qualifiers: Obesity classification: adult class 1 (BMI 30 - 34.9) Body mass index: BMI 31.0-31.9 (19) Prediabetes Current Visit: No Status: Chronic (20) Walker as ambulation aid Current Visit: No Status: Chronic - AMA Did Patient Leave Against Medical Advice: No (pt referred to [facility] rehab)
[2019-01-17 13:53] VITALS: BP 108/57; PULSE 80; TEMP 98.1
[2019-01-18] MEDS ORDERED: chlordiazePOXIDE HCL 10 MG CAPSULE PO SCH (05:00)
== END 2019-01-17 15:05 | disposition other institution (70) | DRG 774 ==
LOC: YASAS 18:26 → Y6N 22:20
PROVIDERS: ADMIT Surgery; ATTEND Surgery
PROC: HZ2ZZZZ Detoxification Services for Substance Abuse Treatment (ICD-10-PCS; principal; 2019-01-14)
DX: F10.230 Alcohol dependence with withdrawal, uncomplicated (principal); F14.20 Cocaine dependence, uncomplicated; F16.20 Hallucinogen dependence, uncomplicated; F19.24 Other psychoactive substance dependence with psychoactive substance-induced mood disorder; Z21 Asymptomatic human immunodeficiency virus [HIV] infection status; R73.9 Hyperglycemia, unspecified; G47.00 Insomnia, unspecified; I10 Essential (primary) hypertension; M12.9 Arthropathy, unspecified; R94.31 Abnormal electrocardiogram [ECG] [EKG]; Z68.31 Body mass index [BMI] 31.0-31.9, adult; K21.9 Gastro-esophageal reflux disease without esophagitis; J45.20 Mild intermittent asthma, uncomplicated; E78.5 Hyperlipidemia, unspecified; K08.9 Disorder of teeth and supporting structures, unspecified; R26.89 Other abnormalities of gait and mobility; Z99.89 Dependence on other enabling machines and devices
CPT/HCPCS: 36415; 80053; 85025; 86593

== ENCOUNTER 2019-01-17 14:58 | Inpatient (IN) | payer OTHER ==
[2019-01-17] MEDS ORDERED: MENTHOL/PHENOL 1 EACH UD MM PRN (15:17)
[2019-01-17] MEDS ORDERED: MAGNESIUM CITRATE 300 ML BOTTLE PO PRN (15:17)
[2019-01-17] MEDS ORDERED: IBUPROFEN 400 MG TABLET (FP) PO PRN (15:17)
[2019-01-17] MEDS ORDERED: MAGNESIUM HYDROX 2400MG/30ML ORAL SUSPENSION 30 ML CUP PO PRN (15:17)
[2019-01-17] MEDS ORDERED: LOPERAMIDE HCL 2 MG CAPSULE PO PRN (15:17)
[2019-01-17] MEDS ORDERED: guaiFENesin/D-METHORPHAN HB 10 ML UNIT-DOSE CUPS PO PRN (15:17)
[2019-01-17] MEDS ORDERED: hydrOXYzine PAMOATE 50 MG CAPSULE (FP) PO PRN (15:17)
[2019-01-17] MEDS ORDERED: P-EPHED 60MG/TRIPROLIDI 2.5MG TABLET PO PRN (15:17)
[2019-01-17] MEDS ORDERED: ACETAMINOPHEN 325 MG TABLET (FP) PO PRN (15:17)
[2019-01-17] MEDS ORDERED: NICOTINE POLACRILEX 4 MG GUM BUC PRN (15:17)
--- NOTE | 2019-01-17 15:17 | HP ---
[facility] Rehab Assess/Revision - Admission History Admitted to Rehab from: [address] - Vital signs Vital Signs: Vital Signs Period Temp Pulse Resp BP Sys/Ortega Pulse Ox Last 24 Hr 97.5 F 84 18 92/62 - Findings Detox History & Physical reviewed: Yes Concur with findings: Yes Inpatient Rehab Admission - Rehab Decision to Admit Inpatient rehab admission?: Yes - Initial Determination Are CD services needed?: Yes Free of communicable disease: Yes Not in need of hospitalization: Yes - Rehab Admission Criteria Previous failed treatment: Yes Poor recovery environment: Yes Comorbidities: Yes Lacks judgement: Yes Patient is meeting Inpatient Rehab admission criteria:: Yes
[2019-01-17 15:35] VITALS: BMI 31.6
[2019-01-17] MEDS: MAG HYDROX/AL HYDROX/SIMETH 30 ML UNIT-DOSE CUP PO PRN (20:16)
[2019-01-17] MEDS ORDERED: PT OWN MED DRAWER 7, Y5N ONE (20:22)
[2019-01-17] MEDS: OFLOXACIN 0.3% OTIC SOLUTION 5 ML BOTTLE AD SCH (21:07)
[2019-01-17] MEDS: THIAMINE HCL 100 MG TABLET (FP) PO SCH (21:07)
[2019-01-18] MEDS: PRENATAL VITAMINS W/ FOLIC ACID TABLET (FP) PO SCH (09:55)
[2019-01-18] MEDS: OFLOXACIN 0.3% OTIC SOLUTION 5 ML BOTTLE AD SCH ×2 (09:55→21:19)
[2019-01-18] MEDS: NICOTINE 21 MG/24 HOURS TOPICAL PATCH TD SCH (09:56)
[2019-01-18] MEDS: MAG HYDROX/AL HYDROX/SIMETH 30 ML UNIT-DOSE CUP PO PRN (14:37)
[2019-01-18] MEDS ORDERED: PT OWN MED DRAWER 7, Y5N ONE (20:35)
[2019-01-18] MEDS: MELATONIN 5 MG TABLETS PO PRN (21:19)
[2019-01-18] MEDS: THIAMINE HCL 100 MG TABLET (FP) PO SCH (21:19)
[2019-01-19] MEDS: NICOTINE 21 MG/24 HOURS TOPICAL PATCH TD SCH (09:22)
[2019-01-19] MEDS: PRENATAL VITAMINS W/ FOLIC ACID TABLET (FP) PO SCH (09:22)
[2019-01-19] MEDS: OFLOXACIN 0.3% OTIC SOLUTION 5 ML BOTTLE AD SCH ×2 (09:22→21:51)
[2019-01-19] MEDS: THIAMINE HCL 100 MG TABLET (FP) PO SCH (21:48)
[2019-01-19] MEDS: MELATONIN 5 MG TABLETS PO PRN (21:48)
[2019-01-20 06:56] VITALS: BP 105/72; PULSE 78; TEMP 97.6
[2019-01-20] MEDS ORDERED: PT OWN MED DRAWER 7, Y5N ONE ×2 (08:37→09:53)
[2019-01-20] MEDS: OFLOXACIN 0.3% OTIC SOLUTION 5 ML BOTTLE AD SCH (09:52)
[2019-01-20] MEDS: PRENATAL VITAMINS W/ FOLIC ACID TABLET (FP) PO SCH (09:52)
[2019-01-20] MEDS: NICOTINE 21 MG/24 HOURS TOPICAL PATCH TD SCH (09:55)
--- NOTE | 2019-01-20 12:27 | PN ---
[facility] Progress Note Note: PT DECLINED TO CONTINUE WITH REHAB. ASKED PT REASON FOR LEAVING AND PT REPLIED " BECAUSE I WANT TO". HOWEVER PT INDICATED LATER THAT SHE HAS THINGS TO DO AND DOES NOT WANT ANY INTERFERENCE. EFFORTS TO ENCOURAGE PT WAS UNSUCCESSFUL. PT MET WITH HER COUNSELOR, SHASHI CLARK PER COUNSELOR, PT REFUSED AFTERCARE. PT REPORTS SHE HAS A PMD("I CANNOT PRONOUNCE HER NAME") AT [facility]. PT REPORTS NONCOMPLIANT WITH ANTIRETROVIRAL MEDS AND WAS NOT TAKING WHILE INPATIENT. Home Medications Medication Instructions Recorded Atazanavir [Reyataz -] 300 mg PO DAILY@0800 01/14/19 Bactrim DS - 1 tab PO DAILY 01/14/19 Emtricitabine/Tenofovir [Truvada] 1 tab PO DAILY 01/14/19 Esomeprazole Magnesium [Nexium 1 tab PO DAILY 01/14/19 24Hr] Vital Signs - 24 hr 01/20/19 01/20/19 01/20/19 00:30 03:30 06:54 Temperature 97.6 F Pulse Rate 78 Respiratory 18 18 18 Rate Blood Pressure 105/72 NAD MEDICALLY STABLE PLAN:FOLLOW UP WITH PCP FOR MEDICAL MANAGEMENT. PT SIGNED OUT AMA
== END 2019-01-20 09:55 | disposition left against medical advice (07) | DRG 770 ==
LOC: YASAS 14:58 → Y3E 15:01
PROVIDERS: ADMIT Neuromusculoskeletal Medicine & OMM; ATTEND Neuromusculoskeletal Medicine & OMM
PROC: HZ42ZZZ Group Counseling for Substance Abuse Treatment, Cognitive-Behavioral (ICD-10-PCS; principal; 2019-01-17)
DX: F10.230 Alcohol dependence with withdrawal, uncomplicated (principal); F14.20 Cocaine dependence, uncomplicated; F16.20 Hallucinogen dependence, uncomplicated; F19.24 Other psychoactive substance dependence with psychoactive substance-induced mood disorder; Z21 Asymptomatic human immunodeficiency virus [HIV] infection status; G47.00 Insomnia, unspecified; I10 Essential (primary) hypertension; R73.9 Hyperglycemia, unspecified; M12.9 Arthropathy, unspecified; R94.31 Abnormal electrocardiogram [ECG] [EKG]; E66.9 Obesity, unspecified; Z68.31 Body mass index [BMI] 31.0-31.9, adult; J45.20 Mild intermittent asthma, uncomplicated; R26.89 Other abnormalities of gait and mobility; Z99.89 Dependence on other enabling machines and devices; K08.89 Other specified disorders of teeth and supporting structures